=== PATIENT | female | born 1990 | race African-American/Black ===

== ENCOUNTER 2017-02-18 22:17 | Emergency (ER) | payer SELFPAY | END 2017-02-19 00:21 | disposition home or self-care (01) | LOC: ER 22:17 | DX: G89.29 Other chronic pain (principal); R10.2 Pelvic and perineal pain | CPT/HCPCS: 51701; 96372; J2550 ==

== ENCOUNTER 2017-03-15 20:23 | Emergency (ER) | payer SELFPAY | END 2017-03-15 23:10 | disposition home or self-care (01) | LOC: ER 20:23 | DX: N32.89 Other specified disorders of bladder (principal); Z79.899 Other long term (current) drug therapy; Z88.6 Allergy status to analgesic agent | CPT/HCPCS: 51702; 96372; J2550 ==